=== PATIENT | male | born 1960 | race Two or more races ===

== ENCOUNTER 2024-12-27 06:13 | Day surgery (SDC) | payer MEDICARE, SELFPAY | END 2024-12-27 11:32 | disposition home or self-care (01) | LOC: GI 06:13 | PROVIDERS: ATTENDING PHYSICIAN Internal Medicine Gastroenterology; FAMILY PHYSICIAN Family Medicine | DX: Z12.11 Encounter for screening for malignant neoplasm of colon (principal); K64.8 Other hemorrhoids; K57.30 Diverticulosis of large intestine without perforation or abscess without bleeding; K62.89 Other specified diseases of anus and rectum; Z85.038 Personal history of other malignant neoplasm of large intestine | CPT/HCPCS: G0105 ==